=== PATIENT | female | born 1970 | race Caucasian/White ===

== ENCOUNTER → 2016-12-04 | Outpatient (CLI) | payer BC ==
[2016-12-04 15:34] LABS: HEMOGLOBIN 13.4 gm/dl (12.3-15.3); RED BLOOD COUNT 4.68 M/UL (4.00-5.10); WHITE BLOOD COUNT 6.2 K/UL (4.5-11.0)
[2016-12-04 15:52] LABS: BUN/CREATININE RATIO 17 (0-10)
== END ==
LOC: LAB 14:32
PROVIDERS: Nurse Practitioner
DX: E78.00 Pure hypercholesterolemia, unspecified (principal); R89.9 Unspecified abnormal finding in specimens from other organs, systems and tissues; D50.9 Iron deficiency anemia, unspecified; Z79.899 Other long term (current) drug therapy
CPT/HCPCS: 36415; 80053; 80061; 85027

== ENCOUNTER → 2020-10-26 | Outpatient (CLI) | payer BC, OTHER | LOC: RT 15:03 | DX: Z79.899 Other long term (current) drug therapy (principal) | CPT/HCPCS: 93005 ==

== ENCOUNTER → 2021-07-06 | Outpatient (CLI) | payer BC | LOC: RAD 15:18 | DX: S09.90XA Unspecified injury of head, initial encounter (principal) | CPT/HCPCS: 70200; 70260 ==

== ENCOUNTER → 2021-08-24 | Outpatient (CLI) | payer BC | LOC: RT 16:22 | DX: Z79.891 Long term (current) use of opiate analgesic (principal) | CPT/HCPCS: 93005 ==